=== PATIENT | female | born 1995 | race Caucasian/White ===

== ENCOUNTER 2019-02-15 11:16 | Emergency (ER) | payer BC ==
[~2019-02-15] VITALS: Ht 167.6 cm; Wt 47.6 kg
[2019-02-15 11:26] VITALS: BP_SYST 114
--- NOTE | 2019-02-15 11:27 | NUR ---
Patient arrived via POV, AAOx4, and ambulatory with steady gait. Patient c/c of lower abdominal pain, vomiting, blood in stool, and hot flashes. Went to urgent care today, and was referred to Emergency room. Patients abdominal pain rated at 7/10. Patient notes she was vomiting from 3200-1320 yesterday. Unable to tolerate food or fluids, patient states she had diarrhea earlier this morning, then followed by bloody stool. Patient states it was straight blood, and clots were present when she wiped. Patient had picture on her phone. Patient states she has not ate since yesterday afternoon. Patient has dry mucus membranes. Will continue to follow up and monitor.
--- NOTE | 2019-02-15 11:27 | NUR ---
Patient to ER bed 5 to gown for evaluation. Side rails up. Assumed care from CHAYA Blank.
--- NOTE | 2019-02-15 11:32 | NUR ---
ER at bedside examining patient.
[2019-02-15] MEDS ORDERED: NACL 0.9% 1,000 ML IV ONE (11:35)
[2019-02-15] MEDS ORDERED: ONDANSETRON HCL 4 MG/2 ML VIAL IVP ONE (11:45)
[2019-02-15 12:03] LABS: BASOPHILS % (AUTO) 0.1 % (0.0-2.0); EOSINOPHILS % (AUTO) 0.5 % (0.0-4.0); HEMATOCRIT 37.8 % (36-48); HEMOGLOBIN 12.8 g/dL (12.0-16.0); LYMPHOCYTES % (AUTO) 32.6 % (20.5-51.5); MEAN CORPUSCULAR HEMOGLOBIN 32 pg (27-31); MEAN CORPUSCULAR HGB CONC 34 % (32-36); MEAN CORPUSCULAR VOLUME 95 fL (79.0-98.0); MONOCYTES # (AUTO) 0.4 K/uL (0.0-1.0); MONOCYTES % (AUTO) 6.7 % (1.7-9.3); NEUTROPHILS # (AUTO) 3.6 K/uL (1.8-7.7); NEUTROPHILS % (AUTO) 60.1 % (40.0-70.0); PLATELET COUNT (AUTO) 246 K/uL (130-430); RED BLOOD CELL COUNT(AUTO) 3.98 MIL/uL (4.2-6.2); RED CELL DISTRIBUTION WIDTH 12.4 % (9.0-15.0)
[2019-02-15 12:11] LABS: CALCIUM 8.9 mg/dL (8.4-11.0); CREATININE 0.86 mg/dL (0.55-1.30); POTASSIUM 3.7 mmol/L (3.5-5.1)
[2019-02-15 12:14] LABS: INR 1.1 (0.8-1.2); PROTHROMBIN TIME 10.8 SECS (9.5-12.5)
[2019-02-15 12:17] LABS: ALBUMIN 3.8 g/dL (3.4-4.8); TOTAL BILIRUBIN 0.6 mg/dL (0.0-1.0)
--- NOTE | 2019-02-15 12:45 | NUR ---
Patient report received from CHAYA Blank. Patient returned from CT scan, awaiting results. Urine received, blood collected and IV medications given. Patiwnt aware of pending results then MD to speak to her.
[2019-02-15 14:12] VITALS: BP_SYST 118
--- NOTE | 2019-02-15 14:12 | NUR ---
Patient given written and verbal discharge instructions and verbalizes understanding. ER MD discussed with patient the results and treatment provided. Patient in stable condition. ID arm band removed. IV catheter removed intact and dressing applied, no active bleeding. Rx of Bentyl, Cipro, Zofran given. Patient educated on pain management and to follow up with PMD. Pain Scale 2/10. Opportunity for questions provided and answered. Medication side effect fact sheet provided.
== END 2019-02-15 14:12 | disposition home or self-care (01) ==
LOC: SED 11:16
DX: K85.90 Acute pancreatitis without necrosis or infection, unspecified (principal); K52.9 Noninfective gastroenteritis and colitis, unspecified
CPT/HCPCS: 36415; 74176; 80053; 81002; 81025; 83690; 85025; 85610; 96361; 96374; 99284; J2405; J7030